=== PATIENT | female | born 1950 ===

== ENCOUNTER 2016-09-01 09:01 | Emergency (ER) | payer MEDICAID ==
[2016-09-01 09:12] VITALS: BP 136/62; PULSE 99; RESP 19; TEMP 99.6; O2SAT 98
--- NOTE | 2016-09-01 11:15 | ED PDOC ---
HPI: CCC, URI, Sore Throat Time Seen by Provider: 09/01/16 09:51 Chief Complaint (Nursing): Cough, Cold, Congestion Chief Complaint (Provider): Cough, Cold, Congestion History Per: Patient History/Exam Limitations: no limitations Onset/Duration Of Symptoms: Days Current Symptoms Are (Timing): Still Present Location Of Pain: Throat Sick Contacts (Context): None Associated Symptoms: Cough. denies: Fever Ear Symptoms: Bilateral: None Severity: Mild Additional Complaint(s): Patient is a 66 year old female who presents to ED for cough and sore throat for 2 days. Denies fever, SOB, chest pain, headache or neck pain Past Medical History Reviewed: Historical Data, Nursing Documentation, Vital Signs Vital Signs: Last Vital Signs Temp 99.6 F 09/01/16 09:10 Pulse 99 H 09/01/16 09:10 Resp 19 09/01/16 09:10 BP 136/62 09/01/16 09:10 Pulse Ox 98 09/01/16 11:16 - Medical History PMH: HTN, Hypercholesterolemia - Surgical History Surgical History: No Surg Hx - Family History Family History: States: Unknown Family Hx - Living Arrangements Living Arrangements: With Family - Immunization History Hx Tetanus Toxoid Vaccination: No Hx Influenza Vaccination: No Hx Pneumococcal Vaccination: No - Home Medications Home Medications: Ambulatory Orders Medication Instructions Recorded Aspirin [Aspirin Chewable] 81 mg PO DAILY 10/09/14 Dorzolamide HCl/Timolol Maleat 10 ml OP BID 10/09/14 [Dorzolamide Hydrochloride/Timolol Maleate 22] Enalapril Maleate [Vasotec] 20 mg PO BID 10/09/14 Latanoprost 0.005% Opht [XALATAN 1 drp OP HS 10/09/14 2.5 Ml] Pravastatin Sodium [Pravastatin] 40 mg PO DAILY 10/09/14 Guaifenesin [Mucinex] 600 mg PO TID PRN #12 ter 06/06/15 Polymyxin/Trimethoprim Sulfate 2 drop OU QID #1 bottle 06/06/15 [Polytrim Ophth Soln] Hydrochlorothiazide [HCTZ] 25 mg PO DAILY #30 07/17/15 Guaifenesin/Dextromethorphan 10 ml PO Q6 PRN #118 ml 09/01/16 [Adult Robitussin Peak Cold Liq] - Allergies Allergies/Adverse Reactions: Allergies Allergy/AdvReac Type Severity Reaction Status Date / Time No Known Allergies Allergy Verified 09/01/16 09:23 Review of Systems Constitutional: Negative for: Fever, Chills ENT: Positive for: Throat Pain. Negative for: Ear Pain, Nose Discharge, Nose Congestion Cardiovascular: Negative for: Chest Pain Respiratory: Positive for: Cough. Negative for: Shortness of Breath Gastrointestinal: Negative for: Vomiting Musculoskeletal: Negative for: Neck Pain Skin: Negative for: Rash Physical Exam - Reviewed Nursing Documentation Reviewed: Yes Vital Signs Reviewed: Yes - Physical Exam Appears: Positive for: Non-toxic, No Acute Distress Skin: Positive for: Normal Color. Negative for: Rash Eye Exam: Positive for: Normal appearance ENT: Negative for: Nasal Congestion, Pharyngeal Erythema, Tonsillar Swelling Neck: Positive for: Normal, Painless ROM Cardiovascular/Chest: Positive for: Regular Rate, Rhythm. Negative for: Murmur Respiratory: Positive for: Normal Breath Sounds. Negative for: Respiratory Distress Extremity: Positive for: Normal ROM Neurologic/Psych: Positive for: Alert, Oriented - ECG O2 Sat by Pulse Oximetry: 98 (RA) Pulse Ox Interpretation: Normal Medical Decision Making Medical Decision Making: Time: 1005 Initial impression: Likely URI r/o influenza and strep Initial plan: -- Flu swab -- Rapid strep Scribe Attestation: Documented by Vicky Tello acting as a scribe for Suleiman Infante MD MD Scribe Attestation: All medical record entries made by the Scribe were at my direction and personally dictated by me. I have reviewed the chart and agree that the record accurately reflects my personal performance of the history, physical exam, medical decision making, and the department course for this patient. I have also personally directed, reviewed, and agree with the discharge instructions and disposition. Disposition - Clinical Impression Clinical Impression: Influenza B - Patient ED Disposition Is Patient to be Admitted: No Doctor Will See Patient In The: Office Counseled Patient/Family Regarding: Studies Performed, Diagnosis, Need For Followup - Disposition Referrals: [facility] [Outside] Disposition: Routine/Home Disposition Time: 11:56 Condition: GOOD Additional Instructions: Take tylenol for pain or fevers. Follow up with your PCP in 2-3 days. Prescriptions: Guaifenesin/Dextromethorphan [Adult Robitussin Peak Cold Liq] 10 ml PO Q6 PRN # 118 ml PRN Reason: Cough Instructions: Influenza (ED)
== END 2016-09-01 12:24 | disposition home or self-care (01) ==
LOC: H.ER 09:01
DX: J10.1 Influenza due to other identified influenza virus with other respiratory manifestations (principal); E78.00 Pure hypercholesterolemia, unspecified; I10 Essential (primary) hypertension; J02.9 Acute pharyngitis, unspecified; Z79.82 Long term (current) use of aspirin

== ENCOUNTER 2017-07-15 07:24 | Emergency (ER) | payer OTHER ==
[2017-07-15 07:43] VITALS: BMI 25.8
[2017-07-15 07:45] VITALS: BP 114/71; PULSE 74; RESP 16; TEMP 98.3
[2017-07-15 07:50] VITALS: O2SAT 98
--- NOTE | 2017-07-15 09:05 | RAD ---
PROCEDURE: Right Hand Radiographs. HISTORY: pain swelling no injury COMPARISON: None. FINDINGS: BONES: No acute fracture. Calcific density interposed between the 3rd and 4th metacarpophalangeal joints may represent sequelae of prior trauma. JOINTS: Unremarkable. SOFT TISSUES: Normal. OTHER FINDINGS: None. IMPRESSION: No demonstrated acute fracture or dislocation. Nonspecific calcific density interposed between the 3rd and 4th metacarpophalangeal joints may represent sequelae of prior trauma.
--- NOTE | 2017-07-15 09:28 | ED PDOC ---
Upper Extremity Pain/Injury Time Seen by Provider: 07/15/17 08:23 Chief Complaint (Nursing): Upper Extremity Problem/Injury Chief Complaint (Provider): Right hand pain History Per: Patient History/Exam Limitations: no limitations Current Symptoms Are (Timing): Still Present Quality: "Pain" Additional Complaint(s): Patricia Wilson, a 67 year old female with a past medical history of hypertension presents to the ED complaining of right hand swelling. Reports of pain whenever she moves her right hand. Denies any injury, trauma or fever. PMD: NO FAMILY PROVIDER Past Medical History Reviewed: Historical Data, Nursing Documentation, Vital Signs Vital Signs: Last Vital Signs Temp 98.3 F 07/15/17 07:43 Pulse 74 07/15/17 07:43 Resp 16 07/15/17 07:43 BP 114/71 07/15/17 07:43 Pulse Ox 98 07/15/17 07:46 - Medical History PMH: HTN, Hypercholesterolemia - Surgical History Other surgeries: hysterectomy - Family History Family History: States: Unknown Family Hx - Immunization History Hx Tetanus Toxoid Vaccination: No Hx Influenza Vaccination: No Hx Pneumococcal Vaccination: No - Home Medications Home Medications: Ambulatory Orders Medication Instructions Recorded Aspirin [Aspirin Chewable] 81 mg PO DAILY 10/09/14 Dorzolamide HCl/Timolol Maleat 10 ml OP BID 10/09/14 [Dorzolamide Hydrochloride/Timolol Maleate 22] Enalapril Maleate [Vasotec] 20 mg PO BID 10/09/14 Latanoprost 0.005% Opht [XALATAN 1 drp OP HS 10/09/14 2.5 Ml] Pravastatin Sodium [Pravastatin] 40 mg PO DAILY 10/09/14 Guaifenesin [Mucinex] 600 mg PO TID PRN #12 ter 06/06/15 Polymyxin/Trimethoprim Sulfate 2 drop OU QID #1 bottle 06/06/15 [Polytrim Ophth Soln] Hydrochlorothiazide [HCTZ] 25 mg PO DAILY #30 07/17/15 Guaifenesin/Dextromethorphan 10 ml PO Q6 PRN #118 ml 09/01/16 [Adult Robitussin Peak Cold Dm] Naproxen 500 mg PO BID #20 tab 07/15/17 - Allergies Allergies/Adverse Reactions: Allergies Allergy/AdvReac Type Severity Reaction Status Date / Time No Known Allergies Allergy Verified 07/15/17 07:46 Review of Systems ROS Statement: Except As Marked, All Systems Reviewed And Found Negative Constitutional: Negative for: Fever Musculoskeletal: Positive for: Arm Pain (right hand) Physical Exam - Reviewed Nursing Documentation Reviewed: Yes Vital Signs Reviewed: Yes - Physical Exam Appears: Positive for: Well, Non-toxic, No Acute Distress Head Exam: Positive for: ATRAUMATIC, NORMAL INSPECTION, NORMOCEPHALIC Skin: Positive for: Normal Color, Warm, Dry Eye Exam: Positive for: EOMI, Normal appearance, PERRL Extremity: Positive for: Swelling (right hand; MCP 3rd and 4th joint; limited range of motion due to pain). Negative for: Deformity, Other (no redness) Neurologic/Psych: Positive for: Alert, Oriented (x3), Gait - ECG O2 Sat by Pulse Oximetry: 98 (RA) Pulse Ox Interpretation: Normal Medical Decision Making Medical Decision Making: Time: 08:32 Initial Impression: Hand pain, swelling, less likely trauma injury Differential Diagnosis includes but is not limited to: Osteoarthritis, Rheumatoid arthritis, Non-traumatic Initial Plan: --Toradol 15mg --Right hand x-ray --Reevaluation Time:09:33 FINDINGS: BONES: No acute fracture. Calcific density interposed between the 3rd and 4th metacarpophalangeal joints may represent sequelae of prior trauma. JOINTS: Unremarkable. SOFT TISSUES: Normal. OTHER FINDINGS: None. IMPRESSION: No demonstrated acute fracture or dislocation. Nonspecific calcific density interposed between the 3rd and 4th metacarpophalangeal joints may represent sequelae of prior trauma. Documented by Angeles Christian acting as a scribe for Suleiman Infante MD. All medical record entries made by the Scribe were at my direction and personally dictated by me. I have reviewed the chart and agree that the record accurately reflects my personal performance of the history, physical exam, medical decision making, and the department course for this patient. I have also personally directed, reviewed, and agree with the discharge instructions and disposition. Disposition - Clinical Impression Clinical Impression: Arthralgia, Hand pain, right - Patient ED Disposition Is Patient to be Admitted: No Doctor Will See Patient In The: Office Counseled Patient/Family Regarding: Studies Performed, Diagnosis, Need For Followup - Disposition Referrals: [facility] [Outside] Disposition: Routine/Home Disposition Time: 09:00 Condition: GOOD Additional Instructions: Take your medications as instructed. Follow up with your PCP in 4-5 days. Prescriptions: Naproxen 500 mg PO BID #20 tab Instructions: Hand Pain (DC) Print Language: ARMENIAN
== END 2017-07-15 09:55 | disposition home or self-care (01) ==
LOC: H.ER 07:24
DX: M79.641 Pain in right hand (principal); M25.541 Pain in joints of right hand; E78.00 Pure hypercholesterolemia, unspecified; I10 Essential (primary) hypertension
CPT/HCPCS: 73130; 96372; 99283; J1885